=== PATIENT | male | born 1940 | race Caucasian/White ===

== ENCOUNTER → 2016-09-27 | Outpatient (REF) ==
[~2016-09-27] MED LIST: ASPIRIN 81M81 MG/TA2 PO; HYZAAR 50-12.1 UDTAB PO; LEVOXYL0.025 MG PO; NORCO 325 MG-51 TAB PO; PRILOTC PO
== END ==
LOC: ZLAB.WCH 15:37
DX: Z01.89 Encounter for other specified special examinations (principal)

== ENCOUNTER → 2018-03-24 | Outpatient (REF) ==
[2018-03-24 17:06] LABS: PSA-TOTAL 0.4 ng/mL (0-4)
[2018-03-24 17:28] LABS: THYROID STIMULATING HORMONE 7.74 uIU/mL (0.465-4.680)
== END ==
LOC: ZLAB.WCH 16:07
PROVIDERS: Nurse Practitioner Family
DX: Z01.89 Encounter for other specified special examinations (principal)
CPT/HCPCS: G0103

== ENCOUNTER → 2018-11-20 | Outpatient (REF) | LOC: ZLAB.WCH 16:16 | DX: Z01.89 Encounter for other specified special examinations (principal) ==

== ENCOUNTER → 2021-05-04 | Outpatient (CLI) | payer MEDICARE | LOC: COL.CARD 09:14 | DX: G40.209 Localization-related (focal) (partial) symptomatic epilepsy and epileptic syndromes with complex partial seizures, not intractable, without status epilepticus (principal); R53.1 Weakness ==